=== PATIENT | male | born 1990 | race Caucasian/White ===

== ENCOUNTER 2017-01-31 04:16 | Emergency (ER) | payer OTHER | END 2017-01-31 05:30 | disposition left against medical advice (07) | LOC: ER1 04:16 | DX: R20.0 Anesthesia of skin (principal); Z53.21 Procedure and treatment not carried out due to patient leaving prior to being seen by health care provider | CPT/HCPCS: 70450 ==

== ENCOUNTER 2020-12-03 12:04 | Emergency (ER) | payer OTHER ==
[~2020-12-03 12:04] MED LIST: ALLEGRA ALLERG180 MG PO; EPIPEN 2-P0.3 MG/0.3 INJ; LIPITOR TAB 2020 MG PO; NEURONTIN 300300 MG PO; VENTOLIN HFA 66.7 GM INH; VISTARIL 50 MG50 MG PO; ZANTAC150 MG PO
[2020-12-03] MEDS ORDERED: BENTYL 20MG TAB20 MG PO (12:56)
[2020-12-03] MEDS ORDERED: ZOFRAN4 MG PO (12:56)
== END 2020-12-03 13:18 | disposition home or self-care (01) ==
LOC: ER1 12:04
DX: R19.7 Diarrhea, unspecified (principal); R11.0 Nausea
CPT/HCPCS: 99283

== ENCOUNTER 2021-02-17 02:57 | Emergency (ER) | payer OTHER ==
[~2021-02-17 02:57] MED LIST changes: +BENTYL 20MG TAB20 MG PO; +ZOFRAN4 MG PO
== END 2021-02-17 03:18 | disposition expired ==
LOC: ER1 02:57
DX: I46.9 Cardiac arrest, cause unspecified (principal); Z95.0 Presence of cardiac pacemaker
CPT/HCPCS: 31500; 92950; 94760; 99285; J0153; J0171; J0461; J1165; J3475; J7030